=== PATIENT | female | born 1970 | race Caucasian/White ===

== ENCOUNTER 2024-03-16 11:08 | Emergency (ER) | payer OTHER, SELFPAY ==
[2024-03-16 11:14] VITALS: BP 147/90; PULSE 79; TEMP 37.1; O2SAT 98; BMI 36.6
--- NOTE | 2024-03-16 11:30 | US_ITS ---
The [address] [address] Patient Name: AUGIE MARQUEZ MRN: [id number] date: 1970 Sex: F Assigned Patient Location: ER Current Patient Location: ER Accession/Order Number: [id number] Exam Date: 03/16/2024 11:49 Report Date: 03/16/2024 12:47 At the request of: CHRIS FLETCHER Procedure: US venous doppler LE LT EXAMINATION: US venous doppler LE LT HISTORY: swelling COMPARISON: No relevant comparison available. FINDINGS: REGION: Left lower extremity THROMBI: None. COMPRESSIBILITY: Normal compressibility. FLOW: Normal waveform and antegrade flow between 5 and 20 cm/s. OTHER: None. US/US venous doppler LE LT IMPRESSION: 1. No deep vein thrombus within the left lower extremity. Electronically authenticated by: KRISTAN CONLEY Date: 03/16/2024 12:47
--- NOTE | 2024-03-16 14:23 | ED.LOWEXI1 ---
HPI HPI - Extremity Injury (Lower) General Chief Complaint: Extremity Injury, Lower Stated Complaint: LOWER EXTREMITY PAIN, LEFT Time Seen by Provider: 03/16/24 11:23 Source: patient and family Mode of arrival: walk-in Limitations: no limitations History of Present Illness HPI Narrative: The patient was evaluated yesterday in [facility] and she was plan to have ultrasound done today to rule out DVT after she was given 1 dose of Eliquis, the patient mentioned that she started having ankle pain yesterday while standing all day she is denying any fall or injury she also denies any history of recent surgery or any long immobilization Related Data Previous Rx's ?Medication ?Instructions ?Recorded naproxen 250 mg tablet 250 mg PO Q12H PRN pain #14 tabs 03/16/24 Allergies Allergy/AdvReac Type Severity Reaction Status Date / Time Sulfa (Sulfonamide AdvReac Severe Hives Verified 03/16/24 11:21 Antibiotics) sulfamethoxazole (From AdvReac Severe Hives Verified 03/16/24 11:21 Bactrim) trimethoprim (From Bactrim) AdvReac Severe Hives Verified 03/16/24 11:21 amoxicillin (From Augmentin) AdvReac Intermediate Diarrhea Verified 03/16/24 11:21 clavulanic acid (From AdvReac Intermediate Diarrhea Verified 03/16/24 11:21 Augmentin) Opioid HPI Opioid Management Most Recent Pain and Opioid Data: No Data to Display Review of Systems ROS Status of ROS 10 or more systems reviewed and unremarkable except as noted in history and below PFSH PFSH Social History Little interest or pleasure in doing things: not at all Feeling down, depressed, or hopeless: not at all Exam Narrative Exam Narrative: Nurses notes and vital signs reviewed and patient is not hypoxic. General: Well-appearing and in no apparent distress. Skin: Warm, dry, no pallor noted. No rash. Head: Normocephalic, atraumatic. Neck: Supple, non-tender. Eye: Pupils are equal, round and EOMI. No scleral icterus. Ears, Nose, Mouth, and Throat: TM are clear, no nasal mucosal hypertrophy. Oral mucosa is moist, no posterior oropharynx erythema, uvula is mid-line Cardiovascular: Regular Rate and Rhythm without murmur, gallop or rub. Respiratory: No accessory muscle use or respiratory distress. Lungs are clear to auscultation, no wheezing, rales or rhonchi Chest Wall: no tenderness Back: No midline thoracic or lumbar vertebral tenderness. No CVA tenderness Musculoskeletal: normal ROM, no calf or popliteal tenderness, the patient have no vascular injury detected in lower extremity but the pulse was obtained by Doppler, the patient also had tenderness upon palpation of the Achilles tendon GI: Abdomen is soft, non-distended. Normal bowel sounds. No masses appreciated. No tenderness to palpation. No rebound, guarding, or rigidity noted. Neurological: A&O x4. No cranial nerve dysfunction observed. No truncal ataxia. Moves all extremities. Sensation intact. Psychiatric: Cooperative and interactive. Normal mood and affect. Constitutional Vital Signs, click to edit/add: Last Vital Signs Temp 98.8 F 03/16/24 11:14 Pulse 79 03/16/24 11:14 Resp 18 03/16/24 11:14 BP 147/90 H 03/16/24 11:14 Pulse Ox 98 03/16/24 11:14 O2 Del Method Room Air 03/16/24 11:14 Course Vital Signs Vital signs: Vital Signs Temperature 98.8 F 03/16/24 11:14 Pulse Rate 79 03/16/24 11:14 Respiratory Rate 18 03/16/24 11:14 Blood Pressure 147/90 H 03/16/24 11:14 Pulse Oximetry 98 03/16/24 11:14 Oxygen Delivery Method Room Air 03/16/24 11:14 Temperature 98.8 F 03/16/24 11:14 Pulse Rate 79 03/16/24 11:14 Respiratory Rate 18 03/16/24 11:14 Blood Pressure 147/90 H 03/16/24 11:14 Pulse Oximetry 98 03/16/24 11:14 Oxygen Delivery Method Room Air 03/16/24 11:14 MDM - Extremity Injury (Lower) MDM Narrative Medical decision making narrative: duplex of the lower extremity showed no acute pathology I obtained x-ray that was done by [facility] yesterday and it was normal Right now the patient possibly have a Achilles injury or tendinitis and she will be placed on NSAIDs in addition to elevation and rest and crutches Patient referred to podiatry as outpatient The patient is to follow up with primary care physician in next 2-3 days or to return to the emergency department should any of the signs or symptoms worsen or new symptoms develop. The patient agrees with the following Diagnosis and Treatment plan and the patient will be discharged home. Discharge Plan Discharge Chief Complaint: Extremity Injury, Lower Clinical Impression: Achilles tendinitis, Ankle sprain Patient Disposition: Home, Self-Care Time of Disposition Decision: 13:23 Condition: Good Prescriptions / Home Meds: New naproxen 250 mg tablet 250 mg PO Q12H PRN (Reason: pain) Qty: 14 0RF Print Language: Arabic Instructions: Ankle Sprain (DC), Achilles Tendinitis (ED) Referrals: IRENE [Other] - 1 week ALVARO MABRY [Primary Care Provider] - 1 week
== END 2024-03-16 14:10 | disposition home or self-care (01) ==
PROVIDERS: Emergency Provider Emergency Medicine; Family Provider Family Medicine; PCP Family Medicine
DX: M76.62 Achilles tendinitis, left leg (principal); S93.402A Sprain of unspecified ligament of left ankle, initial encounter; X58.XXXA Exposure to other specified factors, initial encounter; M79.89 Other specified soft tissue disorders
CPT/HCPCS: 93971; 99284